=== PATIENT | female | born 1995 | race American Indian/Alaskan Native ===

== ENCOUNTER 2020-08-22 18:54 | Emergency (ER) | payer MEDICAID, OTHER ==
[2020-08-22 20:04] VITALS: BP 130/77
[2020-08-22] MEDS ORDERED: HYDROcodone/ACETAMINOPHEN 5-325 MG TAB PO ONE (22:38)
[2020-08-22] MEDS ORDERED: ONDANSETRON 4 MG ODT TAB PO ONE (22:38)
[2020-08-22] MEDS ORDERED: IBUPROFEN 600 MG TAB PO ONE (22:38)
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
== END 2020-08-23 00:10 | disposition home or self-care (01) ==
LOC: ED 18:54
DX: S86.912A Strain of unspecified muscle(s) and tendon(s) at lower leg level, left leg, initial encounter (principal); M62.838 Other muscle spasm; H57.12 Ocular pain, left eye; M79.652 Pain in left thigh; F17.200 Nicotine dependence, unspecified, uncomplicated; Z79.899 Other long term (current) drug therapy; V89.2XXA Person injured in unspecified motor-vehicle accident, traffic, initial encounter; Y93.89 Activity, other specified; Y92.488 Other paved roadways as the place of occurrence of the external cause; Y99.8 Other external cause status
CPT/HCPCS: 99283; Q0162